=== PATIENT | female | born 1970 | race Caucasian/White ===

== ENCOUNTER → 2024-07-24 07:44 | Outpatient (CLI) | payer OTHER, SELFPAY ==
--- NOTE | 2024-07-24 07:47 | DI.MRI.S_ITS ---
PROCEDURE: MR KNEE LT WO CON INDICATIONS: LEFT KNEE INJURY, POSS MENISCUS TECHNIQUE: Noncontrast sagittal PD fast spin echo and T2 fast spin echo with fat saturation, sagittal 3-D FLASH with fat saturation; coronal T1 spin echo and PD fast spin echo with fat saturation, and axial PD fast spin echo with fat saturation through the knee. COMPARISON: None. FINDINGS: Image quality: Excellent. Bones: Mild ganglion cyst formation is present at the central tibial plateau subjacent to the tibial eminence (13/20; 10/13). The bone marrow signal is otherwise normal. There is no acute fracture or dislocation. Joints: There is a trace knee joint effusion. There is mild knee osteoarthritis. Celis's cyst: Trace Celis's cyst. Menisci: There is a complex tear (primarily horizontal component) of the body and posterior horn of the medial meniscus with sparing of the posterior root attachment. Small parameniscal cysts are present along the posterior horn of the medial meniscus (10/6-11). There is no significant medial meniscal body extrusion at this time. The lateral meniscus is normal. The posterior root attachments are normal. Cruciate ligaments: The anterior cruciate ligament is normal. The posterior cruciate ligament is normal. Collateral ligaments: The medial collateral ligament complex is normal. The lateral collateral ligament complex is normal. Popliteus Muscle/Tendon: The popliteus muscle and tendon are normal. Extensor mechanism: The quadriceps tendon is normal. The patellar tendon is normal. The medial and lateral patellar retinacular attachments are normal. Articular cartilage: Partial-thickness chondral fissuring and surface fibrillation is present at the weight-bearing medial and lateral compartments (/). Areas of full-thickness and near full-thickness cartilage loss are present along the lateral patellar facet (/14-16). Other: No other acute findings. IMPRESSION: 1. Complex tear of the body and posterior horn of the medial meniscus with posterior parameniscal cyst. No significant meniscal body extrusion at this time. 2. Mild knee osteoarthritis with associated articular cartilage defects. Dictated by: Javan Clarke M.D. on 07/25/2024 at 15:31 Approved by: Javan Clarke M.D. on 07/25/2024 at 15:38
== END ==
PROVIDERS: Family Provider Family Medicine; PCP Nurse Practitioner Family; Referring Provider Nurse Practitioner Family; Visit Provider Nurse Practitioner Family
DX: S83.232A Complex tear of medial meniscus, current injury, left knee, initial encounter (principal); M17.12 Unilateral primary osteoarthritis, left knee; M23.92 Unspecified internal derangement of left knee
CPT/HCPCS: 73721